=== PATIENT | male | born 1965 | race Caucasian/White ===

== ENCOUNTER 2023-12-03 18:15 | Inpatient (IN) ==
[2023-12-03] MEDS: 0.9 % SODIUM CHLORIDE 1,000 ML IV ONE (19:03)
[2023-12-03] MEDS: ACETAMINOPHEN 500 MG TABLET PO ONE ×2 (19:08→19:11)
[2023-12-03] MEDS: ACETAMINOPHEN 325 MG TABLET PO ONE (19:08)
[2023-12-03 19:59] LABS: Basophils # (Auto) 0.01 K/mcL (0.00-0.30); Basophils % (Auto) 0.1 % (0.0-2.0); Eosinophils # (Auto) 0.01 K/mcL (0.00-0.70); Eosinophils % (Auto) 0.1 % (0.0-7.0); Hematocrit 38.9 % (40.1-51.0); Hemoglobin 13.2 g/dL (13.7-17.5); Lymphocytes % (Auto) 7.4 % (15.5-49.0); Mean Cell Volume 102.9 fL (80.0-100.0); Mean Corpuscular HGB Conc 33.9 g/dL (31.0-36.0); Mean Platelet Volume 10.6 fL (8.8-12.5); Monocytes # (Auto) 0.84 K/mcL (0.10-0.90); Monocytes % (Auto) 12.4 % (1.0-12.0); Neutrophils % (Auto) 79.6 % (38.0-78.0); Platelet Count 89 K/mcL (140-440); RBC 3.78 M/mcL (4.63-6.08); Red Cell Distribution Width 13.2 % (11.5-14.5); WBC 6.8 K/mcL (4.5-11.0)
[2023-12-03 19:59] LABS: Appearance,Urine Clear (Clear); Bilirubin,Urine Negative (Negative); Color,Urine Yellow; Culture Indicated,Urine No; Glucose,Urine (UA) Negative (Negative); Ketones,Urine 15 mg/dL (Negative); Leukocyte Esterase,Urine Negative /uL (Negative); Nitrate,Urine Negative (Negative); Protein,Urine >=300 mg/dL (Negative); Urine Blood Small ery/mcL (Negative); Urine Hyaline Cast 4 /lph (0-2); Urine RBC 1 /hpf (0-3); Urine Squamous Epithelial Cell 1 /hpf (0-4); Urine WBC 1 /hpf (0-4); Urobilinogen,Urine Normal
[2023-12-03 20:03] LABS: ALT/SGPT 105 U/L (<40); AST/SGOT 211 U/L (<40); Albumin 4.1 gm/dL (3.2-5.2); Albumin/Globulin Ratio 1.6 (1.0-2.3); Alkaline Phosphatase 288 U/L (39-117); Blood Urea Nitrogen 15 mg/dL (6-20); Calcium 9.3 mg/dL (8.6-10.4); Carbon Dioxide 25 mmol/L (22-30); Chloride 97 mmol/L (96-108); Creatine Kinase 305 U/L (24-195); Globulin 2.6 gm/dL (2.2-3.7); Glomerular Filtration Rate 66; Glucose 142 mg/dL (70-105); Sodium 136 mmol/L (133-145)
[2023-12-03] MEDS: LORazepam 2 MG/ML VIAL IV ONE ×2 (21:00→21:33)
[2023-12-03] MEDS: cefTRIAXone 1 GM VIAL IV ONE (21:05)
[2023-12-03] MEDS: levETIRAcetam 1,000 MG in 0.9 % SODIUM CHLORIDE 100 ML IV ONE (21:20)
[2023-12-03] MEDS: LORazepam 2 MG/ML VIAL ONE ×2 (21:59)
[2023-12-03] MEDS: AZITHROMYCIN 250 MG TABLET PO ONE (22:22)
[2023-12-04] MEDS: ACETAMINOPHEN 1,000 MG/100 ML BAG IV ONE (01:29)
[2023-12-04] MEDS: LACTULOSE 20 GM/30 ML ORAL.SOL PO ONE (13:23)
[2023-12-04 14:23] LABS: Alcohol, Blood < 10.1 mg/dL; Alcohol,Blood < 0.010 gm/dL (<0.010)
[2023-12-04] MEDS ORDERED: IPRATROPIUM/ALBUTEROL 3 ML AMPUL.NEB NEB PRN (14:49)
[2023-12-04] MEDS ORDERED: ONDANSETRON 4 MG/2 ML VIAL IV PRN (14:49)
[2023-12-04 15:54] LABS: Prothrombin Time 13.9 sec (11.9-14.5)
[2023-12-04 16:36] LABS: Iron 26 ug/dL (61-157); TIBC Calculation 196 ug/dl (228-428); Transferrin % Saturation 13 % (20-50)
[2023-12-04] MEDS: 0.9 % SODIUM CHLORIDE 10 ML SYRINGE IV SCH (17:30)
[2023-12-04] MEDS ORDERED: HALOPERIDOL 5 MG TABLET PO PRN (17:53)
[2023-12-04 19:04] LABS: Amphetamine Screen,Urine None detected; Barbiturate Screen,Urine None detected; Benzodiazepines Screen,Urine None detected; Cannabinoid Screen,Urine None detected; Cocaine Screen,Urine None detected; Opiate Screen,Urine None detected; Oxycodone, Urine Screen None detected; Phencyclidine Screen,Urine None detected
[2023-12-04] MEDS: LORazepam 2 MG/ML VIAL IV PRN (19:10)
[2023-12-04] MEDS ORDERED: METOPROLOL TARTRATE 5 MG/5 ML VIAL IV PRN (19:34)
[2023-12-04] MEDS ORDERED: levETIRAcetam 500 MG TABLET PO SCH (21:00)
[2023-12-04] MEDS: LACTULOSE 20 GM/30 ML ORAL.SOL PO SCH (21:12)
[2023-12-04] MEDS: HALOPERIDOL LACTATE 5 MG/ML VIAL IV PRN (21:12)
[2023-12-04] MEDS: LACTULOSE 20 GM/30 ML ORAL.SOL PR SCH (21:15)
[2023-12-04] MEDS: levETIRAcetam 1,000 MG in 0.9 % SODIUM CHLORIDE 100 ML IV SCH (21:19)
[2023-12-05] MEDS: LORazepam 2 MG/ML VIAL IV PRN ×3 (01:15→12:25)
[2023-12-05] MEDS ORDERED: IPRATROPIUM/ALBUTEROL 3 ML AMPUL.NEB NEB PRN (04:29)
[2023-12-05] MEDS ORDERED: 0.9 % SODIUM CHLORIDE 1,000 ML IV SCH (04:30)
[2023-12-05 07:09] LABS: Basophils # (Auto) 0.02 K/mcL (0.00-0.30); Basophils % (Auto) 0.4 % (0.0-2.0); Eosinophils # (Auto) 0.06 K/mcL (0.00-0.70); Eosinophils % (Auto) 1.2 % (0.0-7.0); Hemoglobin 11.8 g/dL (13.7-17.5); Lymphocytes # (Auto) 1.06 K/mcL (1.50-4.80); Lymphocytes % (Auto) 20.8 % (15.5-49.0); Mean Cell Volume 105.7 fL (80.0-100.0); Mean Corpuscular HGB Conc 33.7 g/dL (31.0-36.0); Monocytes # (Auto) 0.68 K/mcL (0.10-0.90); Monocytes % (Auto) 13.4 % (1.0-12.0); Neutrophils % (Auto) 63.8 % (38.0-78.0); Platelet Count 79 K/mcL (140-440); RBC 3.31 M/mcL (4.63-6.08); Red Cell Distribution Width 13.4 % (11.5-14.5); WBC 5.1 K/mcL (4.5-11.0)
[2023-12-05 07:23] LABS: ALT/SGPT 86 U/L (<40); AST/SGOT 158 U/L (<40); Albumin 3.7 gm/dL (3.2-5.2); Albumin/Globulin Ratio 1.6 (1.0-2.3); Alkaline Phosphatase 237 U/L (39-117); Bilirubin,Total 2.7 mg/dL (0.1-1.0); Blood Urea Nitrogen 12 mg/dL (6-20); Carbon Dioxide 24 mmol/L (22-30); Chloride 104 mmol/L (96-108); Globulin 2.3 gm/dL (2.2-3.7); Glomerular Filtration Rate 73; Glucose 94 mg/dL (70-105); Potassium 3.5 mmol/L (3.3-5.1); Sodium 140 mmol/L (133-145)
[2023-12-05] MEDS: PANTOPRAZOLE 40 MG TABLET PO SCH (07:32)
[2023-12-06] MEDS: hydrALAZINE 20 MG/ML VIAL IV PRN (05:38)
[2023-12-06] MEDS: hydrALAZINE 20 MG/ML VIAL ONE (05:39)
[2023-12-06 06:25] LABS: Basophils # (Auto) 0.01 K/mcL (0.00-0.30); Basophils % (Auto) 0.2 % (0.0-2.0); Eosinophils # (Auto) 0.09 K/mcL (0.00-0.70); Hematocrit 35.7 % (40.1-51.0); Hemoglobin 12.2 g/dL (13.7-17.5); Lymphocytes # (Auto) 0.79 K/mcL (1.50-4.80); Lymphocytes % (Auto) 17.5 % (15.5-49.0); Mean Cell Volume 104.1 fL (80.0-100.0); Mean Corpuscular HGB Conc 34.2 g/dL (31.0-36.0); Mean Platelet Volume 11.1 fL (8.8-12.5); Monocytes # (Auto) 0.64 K/mcL (0.10-0.90); Monocytes % (Auto) 14.2 % (1.0-12.0); Neutrophils % (Auto) 65.7 % (38.0-78.0); Platelet Count 90 K/mcL (140-440); RBC 3.43 M/mcL (4.63-6.08); WBC 4.5 K/mcL (4.5-11.0)
[2023-12-06 06:45] LABS: ALT/SGPT 86 U/L (<40); AST/SGOT 141 U/L (<40); Albumin 3.5 gm/dL (3.2-5.2); Albumin/Globulin Ratio 1.5 (1.0-2.3); Alkaline Phosphatase 242 U/L (39-117); Bilirubin,Total 2.3 mg/dL (0.1-1.0); Blood Urea Nitrogen 12 mg/dL (6-20); Calcium 8.9 mg/dL (8.6-10.4); Carbon Dioxide 22 mmol/L (22-30); Chloride 101 mmol/L (96-108); Globulin 2.3 gm/dL (2.2-3.7); Glomerular Filtration Rate 93; Glucose 118 mg/dL (70-105); Potassium 3.7 mmol/L (3.3-5.1); Sodium 133 mmol/L (133-145)
[2023-12-06] MEDS: LACTULOSE 20 GM/30 ML ORAL.SOL PO SCH ×2 (10:33→20:55)
[2023-12-06] MEDS: levETIRAcetam 500 MG TABLET PO SCH (20:55)
[2023-12-07 06:32] LABS: ALT/SGPT 92 U/L (<40); AST/SGOT 138 U/L (<40); Albumin 3.4 gm/dL (3.2-5.2); Albumin/Globulin Ratio 1.5 (1.0-2.3); Alkaline Phosphatase 262 U/L (39-117); Blood Urea Nitrogen 11 mg/dL (6-20); Calcium 8.8 mg/dL (8.6-10.4); Carbon Dioxide 24 mmol/L (22-30); Chloride 100 mmol/L (96-108); Globulin 2.3 gm/dL (2.2-3.7); Glomerular Filtration Rate 73; Glucose 108 mg/dL (70-105); Potassium 3.6 mmol/L (3.3-5.1); Sodium 132 mmol/L (133-145)
[2023-12-07 06:37] LABS: Basophils # (Auto) 0.02 K/mcL (0.00-0.30); Basophils % (Auto) 0.4 % (0.0-2.0); Eosinophils # (Auto) 0.09 K/mcL (0.00-0.70); Eosinophils % (Auto) 1.8 % (0.0-7.0); Hematocrit 35.2 % (40.1-51.0); Hemoglobin 11.8 g/dL (13.7-17.5); Lymphocytes # (Auto) 0.94 K/mcL (1.50-4.80); Lymphocytes % (Auto) 19.2 % (15.5-49.0); Mean Cell Volume 105.4 fL (80.0-100.0); Mean Corpuscular HGB Conc 33.5 g/dL (31.0-36.0); Mean Platelet Volume 10.8 fL (8.8-12.5); Monocytes # (Auto) 0.79 K/mcL (0.10-0.90); Monocytes % (Auto) 16.1 % (1.0-12.0); Neutrophils % (Auto) 62.1 % (38.0-78.0); Platelet Count 103 K/mcL (140-440); RBC 3.34 M/mcL (4.63-6.08); WBC 4.9 K/mcL (4.5-11.0)
[2023-12-07] MEDS ORDERED: NON FORMULARY MEDICATION 1 DOSE MISCELL (Omeprazole 40 mg capsule,delayed release(DR/EC)) PO SCH (09:00)
[2023-12-07] MEDS ORDERED: MELOXICAM 7.5 MG TABLET PO SCH (09:00)
[2023-12-07] MEDS: METOPROLOL SUCCINATE 25 MG TAB.XL.24H PO SCH (09:25)
== END 2023-12-07 09:50 | disposition home or self-care (01) | DRG 442 ==
LOC: ED 18:15 → ICU 18:15
PROVIDERS: ADMIT Internal Medicine; ATTEND Internal Medicine